=== PATIENT | female | born 1970 | race Asian ===

== ENCOUNTER 2018-04-20 09:44 | Emergency (ER) | payer OTHER ==
[2018-04-20 10:09] LABS: URINE HCG POC HCG NEGATIVE (Negative)
[2018-04-20 10:14] LABS: BILIRUBIN,URINE NEGATIVE (NEG); CLARITY,URINE CLEAR; COLOR,URINE YELLOW; GLUCOSE,URINE NEGATIVE (NEG); NITRITE,URINE NEGATIVE (NEG); PH,URINE 5.5; PROTEIN,URINE NEGATIVE (NEG-TRACE); UROBILINOGEN,URINE 0.2 mg/dL (0.2 mg/dL)
[2018-04-20 10:31] LABS: BACTERIA,URINE FEW /HPF (0-FEW); RBC,URINE OCC /HPF (0-2); SQUAMOUS EPITHELIAL CELL,UR MANY /LPF
== END 2018-04-20 11:09 | disposition home or self-care (01) ==
LOC: ER 09:44
DX: N39.0 Urinary tract infection, site not specified (principal)
CPT/HCPCS: 81001; 81025; 87086; 99284

== ENCOUNTER 2018-08-07 11:29 | Emergency (ER) | payer OTHER ==
[~2018-08-07] VITALS: Ht 152.4 cm; Wt 47.6 kg
[~2018-08-07 11:29] MED LIST: IBUP-1007 PO; MUPI15CR TP; PHEN100T82 PO; SULF1TAB24 PO
[2018-08-07 12:03] VITALS: BP 105/72
[2018-08-07 12:23] LABS: BILIRUBIN,URINE NEGATIVE (NEG); CLARITY,URINE TURBID; COLOR,URINE YELLOW; NITRITE,URINE POSITIVE (NEG); PH,URINE 6.5; PROTEIN,URINE 100 mg/dL (NEG-TRACE); UROBILINOGEN,URINE 0.2 mg/dL (0.2 mg/dL)
[2018-08-07 12:38] LABS: BACTERIA,URINE MODERATE /HPF (0-FEW); SQUAMOUS EPITHELIAL CELL,UR FEW /LPF; WBC,URINE TNTC /HPF (0-4)
--- NOTE | 2018-08-07 12:48 | PHYS DOC ---
Past Medical History Past Medical History: Other Additional Past Medical Histor: HEP C Past Surgical History: No Surgical History Alcohol Use: None Drug Use: None Adult General Chief Complaint Chief Complaint: BLOOD IN URINE HPI HPI Patient is a 48 year old female who presents to the emergency Department today with complaints of urinary frequency and burning for the last week. Patient also reported a vaginal discharge that is white in color. She states that this is normal vaginal discharge for her denies any vaginal odor or vaginal itching. Patient has been seen in the last 6 months for the same problem and has followed up with a physician for treatment of her year urinary tract infections but now she is continuing to have the same symptoms as before. She denies any nausea, vomiting, diarrhea, abdominal pain, or incontinence. Patient reports left-sided low back pain in addition to dysuria and increased urinary frequency. Currently she states that the pain with urination is a 9 out of 10. Pt speaks B[place] and is accompanied by a christian member who is a medical coordinator pesticide use and translated for the patient. Review of Systems Review of Systems Constitutional: Denies fever or chills [] Respiratory: Denies cough or shortness of breath [] GI: Denies abdominal pain, nausea, vomiting, or diarrhea [] : reports increased frequency, dysuria, suprapubic pain, and low back pain Neurologic: Denies headache, focal weakness or sensory changes [] All other systems were reviewed and found to be within normal limits, except as documented in this note. Allergies Allergies Allergies Coded Allergies Type Severity Reaction Last Updated Verified No Known Drug Allergies 04/20/18 No Physical Exam Physical Exam Constitutional: Well developed, well nourished, no acute distress, non-toxic appearance. [] HENT: Normocephalic, atraumatic, bilateral external ears normal, oropharynx moist, no oral exudates, nose normal. [] Eyes: PERRLA, conjunctiva normal, no discharge. [] Neck: Normal range of motion, no tenderness, supple, no stridor. [] Cardiovascular:Heart rate regular rhythm, no murmur [] Lungs & Thorax: Bilateral breath sounds clear to auscultation [] Abdomen: soft, suprapubic tenderness, no masses, no pulsatile masses. [] Skin: Warm, dry, no erythema, no rash. [] Back: L CVA tenderness. [] Neurologic: Alert and oriented X 3, normal motor function, normal sensory function, no focal deficits noted. [] Psychologic: Affect normal, judgement normal, mood normal. [] Current Patient Data Vital Signs Vital Signs Date Time Temp Pulse Resp B/P (MAP) Pulse Ox O2 Delivery O2 Flow Rate FiO2 08/07/18 12:03 98.1 89 16 105/72 (83) 100 98.1 Lab Values Laboratory Tests Test 08/07/18 11:45 Urine Collection Type Unknown Urine Color Yellow Urine Clarity Turbid Urine pH 6.5 Urine Specific [employer] 1.015 Urine Protein 100 mg/dL (NEG-TRACE) Urine Glucose (UA) Negative mg/dL (NEG) Urine Ketones (Stick) Negative mg/dL (NEG) Urine Blood Large (NEG) Urine Nitrite Positive (NEG) Urine Bilirubin Negative (NEG) Urine Urobilinogen Dipstick 0.2 mg/dL (0.2 mg/dL) Urine Leukocyte Esterase Large (NEG) Urine RBC 11-20 /HPF (0-2) Urine WBC Tntc /HPF (0-4) Urine Squamous Epithelial Cells Few /LPF Urine Bacteria Moderate /HPF (0-FEW) Urine Mucus Slight /LPF EKG EKG [] Radiology/Procedures Radiology/Procedures [] Course & Med Decision Making Course & Med Decision Making Pertinent Labs and Imaging studies reviewed. (See chart for details) Dx: UTI prescriptions for cipro and pyridium. Increase clear fluids and avoid bladder irritants. Follow up with PCP next week. Patient verbalized an understanding of home care, medications, follow-up, and return to ED instructions and was in agreement with the plan of care. [] Dragon Disclaimer Dragon Disclaimer This electronic medical record was generated, in whole or in part, using a voice recognition dictation system. Departure Departure Impression: Primary Impression: Urinary tract infection Disposition: HOME, SELF-CARE Condition: STABLE Referrals: NO PCP (PCP) Patient Instructions: Urinary Tract Infection Additional Instructions: Fill prescription(s) and use as directed. Increase clear fluids, avoid bladder irritants such as caffeine, carbonation, and spicy foods. Follow up with your doctor next week, return to the ER if symptoms worsen. Scripts Ciprofloxacin Hcl (CIPRO) 500 Mg Tablet 1 TAB PO BID, #14 TAB Prov: SONNY MANDEL APRN 08/07/18 Phenazopyridine Hcl (PYRIDIUM) 100 Mg Tablet 100 MG PO TID PRN for PAIN, #12 TAB 0 Refills Prov: SONNY MANDEL APRN 08/07/18 Problem Qualifiers Primary Impression: Urinary tract infection Urinary tract infection type: site unspecified Hematuria presence: with hematuria Qualified Codes: N39.0 - Urinary tract infection, site not specified ; R31.9 - Hematuria, unspecified SONNY MANDEL APRN Aug 07, 2018 12:48
[2018-08-07] MEDS ORDERED: PHEN100T82 PO (12:52)
[2018-08-07] MEDS ORDERED: CIPR500T94 PO (12:52)
== END 2018-08-07 13:10 | disposition home or self-care (01) ==
LOC: ER 11:29
DX: N39.0 Urinary tract infection, site not specified (principal); N89.8 Other specified noninflammatory disorders of vagina
CPT/HCPCS: 81001; 87086; 99284

== ENCOUNTER 2018-12-07 09:54 | Emergency (ER) | payer OTHER ==
[~2018-12-07] VITALS: Ht 160 cm; Wt 52.2 kg
[~2018-12-07 09:54] MED LIST changes: +CIPR500T94 PO
[2018-12-07 10:14] VITALS: BP 122/82
[2018-12-07] MEDS ORDERED: PRED50TA PO (10:42)
[2018-12-07] MEDS ORDERED: IBUP-1007 PO (10:42)
--- NOTE | 2018-12-07 10:43 | PHYS DOC ---
Past Medical History Past Medical History: Other Additional Past Medical Histor: HEP C Past Surgical History: No Surgical History Alcohol Use: None Drug Use: None Adult General Chief Complaint Chief Complaint: SORE THROAT HPI HPI Patient is a 48 year old female who presents with sore throat that began yesterday. Patient denies any fever coughing or congestion. was interpreting for patient. Review of Systems Review of Systems Constitutional: Denies fever or chills [] Eyes: Denies change in visual acuity, redness, or eye pain [] HENT: Reports sore throat. Denies nasal congestion Respiratory: Denies cough or shortness of breath [] Cardiovascular: No additional information not addressed in HPI [] GI: Denies abdominal pain, nausea, vomiting, bloody stools or diarrhea [] : Denies dysuria or hematuria [] Musculoskeletal: Denies back pain or joint pain [] Integument: Denies rash or skin lesions [] Neurologic: Denies headache, focal weakness or sensory changes [] All other systems were reviewed and found to be within normal limits, except as documented in this note. Allergies Allergies Allergies Coded Allergies Type Severity Reaction Last Updated Verified No Known Drug Allergies 04/20/18 No Physical Exam Physical Exam Constitutional: Well developed, well nourished, no acute distress, non-toxic appearance. [] HENT: Normocephalic, atraumatic, bilateral external ears normal, oropharynx moist, no oral exudates, nose normal. Slight erythema noted posterior pharynx, no exudate. Eyes: PERRLA, EOMI, conjunctiva normal, no discharge. [] Neck: Normal range of motion, no tenderness, supple, no stridor. [] Cardiovascular:Heart rate regular rhythm, no murmur [] Lungs & Thorax: Bilateral breath sounds clear to auscultation [] Abdomen: Bowel sounds normal, soft, no tenderness, no masses, no pulsatile masses. [] Skin: Warm, dry, no erythema, no rash. [] Back: No tenderness, no CVA tenderness. [] Extremities: No tenderness, no cyanosis, no clubbing, ROM intact, no edema. [] Neurologic: Alert and oriented X 3, normal motor function, normal sensory function, no focal deficits noted. [] Psychologic: Affect normal, judgement normal, mood normal. [] Current Patient Data Vital Signs Vital Signs Date Time Temp Pulse Resp B/P (MAP) Pulse Ox O2 Delivery O2 Flow Rate FiO2 12/07/18 10:14 98.4 77 16 122/82 (95) 99 Room Air 98.4 EKG EKG [] Radiology/Procedures Radiology/Procedures [] Course & Med Decision Making Course & Med Decision Making Pertinent Labs and Imaging studies reviewed. (See chart for details) This is a 48-year-old female patient presenting with sore throat since yesterday. Negative rapid strep. Symptoms are likely viral saltwater gargles recommended. Tylenol Motrin for pain or fever and follow-up with PCP in 1-2 weeks. Dragon Disclaimer Dragon Disclaimer This electronic medical record was generated, in whole or in part, using a voice recognition dictation system. Departure Departure Impression: Primary Impression: Acute viral pharyngitis Disposition: HOME, SELF-CARE Condition: STABLE Referrals: UNKNOWN PCP NAME (PCP) Follow-up in 1-2 Patient Instructions: Viral Pharyngitis Additional Instructions: You were evaluated for viral pharyngitis. Take the prescribed medications as ordered. Take Tylenol or Motrin for pain or fever. Follow-up with primary care doctor in 2 weeks. Scripts Prednisone (PREDNISONE) 50 Mg Tablet 1 TAB PO DAILY, #5 TAB Prov: ELYSSA MORENO APRN 12/07/18 Ibuprofen (IBUPROFEN) 600 Mg Tablet 600 MG PO PRN Q6HRS PRN for INFLAMMATION, #20 TAB Prov: ELYSSA MORENO APRN 12/07/18 ELYSSA MORENO APRN Dec 07, 2018 10:43
== END 2018-12-07 10:49 | disposition home or self-care (01) ==
LOC: ER 09:54
DX: J02.8 Acute pharyngitis due to other specified organisms (principal); B97.89 Other viral agents as the cause of diseases classified elsewhere
CPT/HCPCS: 87070; 87880; 99283

== ENCOUNTER 2018-12-20 03:57 | Emergency (ER) | payer OTHER ==
[~2018-12-20] VITALS: Ht 152.4 cm; Wt 52.2 kg
[~2018-12-20 03:57] MED LIST changes: +PRED50TA PO
[2018-12-20] MEDS ORDERED: IV NORMAL SALINE 500ML BAG 500 ML IV ONE (04:15)
[2018-12-20] MEDS ORDERED: HYOSCYAMINE 0.125 MG TAB.RAPDIS PO ONE (04:15)
[2018-12-20 04:30] VITALS: BP 104/65
--- NOTE | 2018-12-20 04:36 | PHYS DOC ---
Past Medical History Past Medical History: Other Additional Past Medical Histor: HEP C Past Surgical History: No Surgical History Alcohol Use: None Drug Use: None Adult General Chief Complaint Chief Complaint: ABDOMINAL PAIN HPI HPI Patient is a 48 year old female who presents with diarrhea. This started at approximately noon yesterday. There has been no blood in the stool. No significant abdominal pain. Some mild cramping. Patient recently traveled to and from the [facility] approximately 48 hours before this. There has been no out of country travel. No nausea or vomiting. No fever. Nothing seems to make the symptoms better or worse.[] Review of Systems Review of Systems Constitutional: Denies fever or chills [] Eyes: Denies change in visual acuity, redness, or eye pain [] HENT: Denies nasal congestion or sore throat [] Respiratory: Denies cough or shortness of breath [] Cardiovascular: No chest pain or palpitations[] GI: See history of present illness[] : Denies dysuria or hematuria [] Musculoskeletal: Denies back pain or joint pain [] Integument: Denies rash or skin lesions [] Neurologic: Denies headache, focal weakness or sensory changes [] Endocrine: Denies polyuria or polydipsia [] All other systems were reviewed and found to be within normal limits, except as documented in this note. Current Medications Current Medications Current Medications Medications (Trade) Dose Ordered Sig/Nellie Start Time Stop Time Status Last Admin Dose Admin Hyoscyamine (Anaspaz) 0.125 mg ONCE ONCE 12/20/18 04:15 12/20/18 04:31 DC 12/20/18 04:28 0.125 MG Sodium Chloride 500 ml @ 500 mls/hr 1X ONCE 12/20/18 04:15 12/20/18 05:14 12/20/18 04:28 500 MLS/HR Allergies Allergies Allergies Coded Allergies Type Severity Reaction Last Updated Verified No Known Drug Allergies 04/20/18 No Physical Exam Physical Exam Constitutional: Well developed, well nourished, no acute distress, non-toxic appearance. [] HENT: Normocephalic, atraumatic, bilateral external ears normal, oropharynx moist, no oral exudates, nose normal. [] Eyes: PERRLA, EOMI, conjunctiva normal, no discharge. [] Neck: Normal range of motion, no tenderness, supple, no stridor. [] Cardiovascular:Heart rate regular rhythm, no murmur [] Lungs & Thorax: Bilateral breath sounds clear to auscultation [] Abdomen: Bowel sounds normal, soft, no tenderness, no masses, no pulsatile masses. [] Skin: Warm, dry, no erythema, no rash. [] Back: No tenderness, no CVA tenderness. [] Extremities: No tenderness, no cyanosis, no clubbing, ROM intact, no edema. [] Neurologic: Alert and oriented X 3, normal motor function, normal sensory function, no focal deficits noted. [] Psychologic: Affect normal, judgement normal, mood normal. [] Current Patient Data Vital Signs Vital Signs Date Time Temp Pulse Resp B/P (MAP) Pulse Ox O2 Delivery O2 Flow Rate FiO2 12/20/18 04:06 97.5 67 16 106/63 (77) 99 Room Air 97.5 Lab Values Laboratory Tests Test 12/20/18 04:15 12/20/18 04:19 12/20/18 04:30 White Blood Count 4.3 x10^3/uL (4.0-11.0) Red Blood Count 4.17 x10^6/uL (3.50-5.40) Hemoglobin 10.7 g/dL (12.0-15.5) L Hematocrit 33.9 % (36.0-47.0) L Mean Corpuscular Volume 81 fL (79-100) Mean Corpuscular Hemoglobin 26 pg (25-35) Mean Corpuscular Hemoglobin Concent 32 g/dL (31-37) Red Cell Distribution Width 14.8 % (11.5-14.5) H Platelet Count 125 x10^3/uL (140-400) L Neutrophils (%) (Auto) 48 % (31-73) Lymphocytes (%) (Auto) 39 % (24-48) Monocytes (%) (Auto) 10 % (0-9) H Eosinophils (%) (Auto) 3 % (0-3) Basophils (%) (Auto) 0 % (0-3) Neutrophils # (Auto) 2.0 x10^3uL (1.8-7.7) Lymphocytes # (Auto) 1.7 x10^3/uL (1.0-4.8) Monocytes # (Auto) 0.4 x10^3/uL (0.0-1.1) Eosinophils # (Auto) 0.1 x10^3/uL (0.0-0.7) Basophils # (Auto) 0.0 x10^3/uL (0.0-0.2) Urine Collection Type Unknown Urine Color Yellow Urine Clarity Clear Urine pH 5.0 Urine Specific [place] 1.020 Urine Protein Negative mg/dL (NEG-TRACE) Urine Glucose (UA) Negative mg/dL (NEG) Urine Ketones (Stick) Negative mg/dL (NEG) Urine Blood Negative (NEG) Urine Nitrite Negative (NEG) Urine Bilirubin Negative (NEG) Urine Urobilinogen Dipstick 0.2 mg/dL (0.2 mg/dL) Urine Leukocyte Esterase Moderate (NEG) Urine RBC 11-20 /HPF (0-2) Urine WBC Tntc /HPF (0-4) Urine Squamous Epithelial Cells Many /LPF Urine Bacteria Moderate /HPF (0-FEW) Urine Mucus Marked /LPF Sodium Level 141 mmol/L (136-145) Potassium Level 3.3 mmol/L (3.5-5.1) L Chloride Level 105 mmol/L (98-107) Carbon Dioxide Level 27 mmol/L (21-32) Anion Gap 9 (6-14) Blood Urea Nitrogen 8 mg/dL (7-20) Creatinine 0.7 mg/dL (0.6-1.0) Estimated GFR (Cockcroft-Gault) 90.1 BUN/Creatinine Ratio 11 (6-20) Glucose Level 99 mg/dL (70-99) Calcium Level 8.6 mg/dL (8.5-10.1) Total Bilirubin 0.4 mg/dL (0.2-1.0) Aspartate Amino Transferase (AST) 17 U/L (15-37) Alanine Aminotransferase (ALT) 17 U/L (14-59) Alkaline Phosphatase 70 U/L (46-116) Total Protein 7.5 g/dL (6.4-8.2) Albumin 3.3 g/dL (3.4-5.0) L Albumin/Globulin Ratio 0.8 (1.0-1.7) L Lipase 132 U/L (73-393) POC Urine HCG, Qualitative Hcg negative (Negative) Influenza Type A Antigen Negative (NEGATIVE) Influenza Type B Antigen Negative (NEGATIVE) Laboratory Tests 12/20/18 04:15 Laboratory Tests 12/20/18 04:15 EKG EKG [] Radiology/Procedures Radiology/Procedures Acute abdominal series to include a PA chest radiograph 12/20/2018 Clinical History: Abdominal pain and diarrhea. A PA digital radiograph of the chest was obtained. Two AP supine and an erect AP digital radiographs of the abdomen/pelvis were obtained. No previous studies are available for comparison. The cardiac and mediastinal silhouettes are within normal limits in size and configuration. No pulmonary infiltrate is seen. No pleural effusion or pneumothorax is noted. The abdominal bowel gas pattern is nonobstructive. A moderate amount of stool is seen throughout the colon. There is no evidence of free air. No radiopaque calculus is seen. The osseous structures are grossly intact. Impression: Nonobstructive bowel gas pattern.[] Course & Med Decision Making Course & Med Decision Making Pertinent Labs and Imaging studies reviewed. (See chart for details) ED course: Patient arrived, was placed in bed, in tolerated exam well. She was given IV fluids, as well as antispasmodics. She was transported to and from x- ray with any complications. After the return of the laboratory and imaging studies, these were discussed with the patient and her family who voiced understanding. All questions were answered. Patient was discharged in improved condition. Medical decision making: Patient does not appear to have an obstruction, no evidence of blood in the stool, no anemia, no significant pathology noted on abdominal series radiographs. Patient is noted to have urinary tract infection, no evidence of pyelonephritis.[] Dragon Disclaimer Dragon Disclaimer This electronic medical record was generated, in whole or in part, using a voice recognition dictation system. Departure Departure Impression: Primary Impression: Urinary tract infection Additional Impression: Diarrhea Disposition: 01 HOME, SELF-CARE Condition: IMPROVED Referrals: UNKNOWN PCP NAME (PCP) Patient Instructions: Diarrhea, Diet for Diarrhea, Adult, Urinary Tract Infection Additional Instructions: Follow-up with your regular doctor in 2 days. Drink plenty of fluids, frequent small sips. No fatty foods, no milk, and no pepper for the next 48 hours. For the next 48 hours eat a diet rich in carbohydrates with foods such as bananas, rice, applesauce, and toast. Return to the ER if worsening discomfort, blood in the stool, or any other concerns. Scripts Hyoscyamine Sulfate (LEVSIN) 0.125 Mg Tablet 0.125 MG PO QID, #30 TAB Prov: RANDY ADAN DO 12/20/18 Ciprofloxacin Hcl (CIPRO) 250 Mg Tablet 250 MG PO BID for 7 Days, TAB Prov: RANDY ADAN DO 12/20/18 Problem Qualifiers Primary Impression: Urinary tract infection Urinary tract infection type: site unspecified Hematuria presence: without hematuria Qualified Codes: N39.0 - Urinary tract infection, site not specified Additional Impression: Diarrhea Diarrhea type: unspecified type Qualified Codes: R19.7 - Diarrhea, unspecified RANDY ADAN DO Dec 20, 2018 04:36
[2018-12-20 04:38] LABS: BASO % 0 % (0-3); EOS # 0.1 x10^3/uL (0.0-0.7); EOS % 3 % (0-3); HEMATOCRIT 33.9 % (36.0-47.0); HEMOGLOBIN 10.7 g/dL (12.0-15.5); LYMPH # 1.7 x10^3/uL (1.0-4.8); LYMPH % 39 % (24-48); MEAN CORPUSCULAR HEMOGLOBIN 26 pg (25-35); MEAN CORPUSCULAR HGB CONC 32 g/dL (31-37); MEAN CORPUSCULAR VOLUME 81 fL (79-100); MONO # 0.4 x10^3/uL (0.0-1.1); MONO % 10 % (0-9); NEUT % 48 % (31-73); PLATELET COUNT 125 x10^3/uL (140-400); RED BLOOD COUNT 4.17 x10^6/uL (3.50-5.40); RED CELL DISTRIBUTION WIDTH 14.8 % (11.5-14.5); WHITE BLOOD COUNT 4.3 x10^3/uL (4.0-11.0)
[2018-12-20 04:40] LABS: BILIRUBIN,URINE NEGATIVE (NEG); CLARITY,URINE CLEAR; COLOR,URINE YELLOW; NITRITE,URINE NEGATIVE (NEG); PROTEIN,URINE NEGATIVE (NEG-TRACE); UROBILINOGEN,URINE 0.2 mg/dL (0.2 mg/dL)
[2018-12-20 04:51] LABS: CALCIUM 8.6 mg/dL (8.5-10.1); CREATININE 0.7 mg/dL (0.6-1.0); GFR 90.1; POTASSIUM 3.3 mmol/L (3.5-5.1)
[2018-12-20 04:56] LABS: ALBUMIN 3.3 g/dL (3.4-5.0); ALBUMIN/GLOBULIN RATIO 0.8 (1.0-1.7); TOTAL BILIRUBIN 0.4 mg/dL (0.2-1.0); TOTAL PROTEIN 7.5 g/dL (6.4-8.2)
--- NOTE | 2018-12-20 05:01 | RAD ---
Acute abdominal series to include a PA chest radiograph 12/20/2018 Clinical History: Abdominal pain and diarrhea. A PA digital radiograph of the chest was obtained. Two AP supine and an erect AP digital radiographs of the abdomen/pelvis were obtained. No previous studies are available for comparison. The cardiac and mediastinal silhouettes are within normal limits in size and configuration. No pulmonary infiltrate is seen. No pleural effusion or pneumothorax is noted. The abdominal bowel gas pattern is nonobstructive. A moderate amount of stool is seen throughout the colon. There is no evidence of free air. No radiopaque calculus is seen. The osseous structures are grossly intact. Impression: Nonobstructive bowel gas pattern. Electronically signed by: Rubens Sanchez MD (12/20/2018 4:58 AM) [id number]
[2018-12-20 05:02] LABS: BACTERIA,URINE MODERATE /HPF (0-FEW); SQUAMOUS EPITHELIAL CELL,UR MANY /LPF; WBC,URINE TNTC /HPF (0-4)
[2018-12-20 05:05] LABS: INFLUENZA A PATIENT NEGATIVE (NEGATIVE); INFLUENZA B PATIENT NEGATIVE (NEGATIVE)
[2018-12-20] MEDS ORDERED: HYOS0.1264 PO (05:24)
[2018-12-20] MEDS ORDERED: CIPR250T30 PO (05:24)
[2018-12-20] MEDS ORDERED: CIPROFLOXACIN HCL 250 MG TABLET. PO ONE (05:30)
== END 2018-12-20 05:30 | disposition home or self-care (01) ==
LOC: ER 03:57
DX: N39.0 Urinary tract infection, site not specified (principal); R19.7 Diarrhea, unspecified
CPT/HCPCS: 36415; 74022; 80053; 81001; 81025; 83690; 85025; 87086; 87804; 96360; 99284; J7040

== ENCOUNTER 2020-12-09 03:50 | Emergency (ER) | payer OTHER ==
[~2020-12-09] VITALS: Ht 157.5 cm; Wt 52.7 kg
[~2020-12-09 03:50] MED LIST changes: +CIPR250T30 PO; +HYOS0.1264 PO
--- NOTE | 2020-12-09 04:22 | PHYS DOC ---
Past Medical History Past Medical History: Other Additional Past Medical Histor: HEP C (SANCHEZ HAMILTON DO) Past Surgical History: No Surgical History (SANCHEZ HAMILTON DO) Smoking Status: Never Smoker Alcohol Use: None Drug Use: None (SANCHEZ HAMILTON DO) General Adult EDM: Chief Complaint: ABDOMINAL PAIN HPI: HPI: Patient is a 50 year old female with no significant past medical histories who presents with acute onset abdominal pain. Patient only speaks [place] and her son acts as a truck body builder. According to patient and her son that this pain started about a few hours ago. It is constant, 10 out of 10 in severity's and starting from the lower back and radiating to the left lower quadrant of the abdomen. Patient had one episode of vomiting and she was roomed in the ER. Patient had never had similar pain before. Patient denies any headache, shortness of air, chest pain, pain in the other 3 quadrants of the abdomen, diarrhea or constipation. 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 (SANCHEZ HAMILTON DO) Review of Systems: Review of Systems: Review of systems: Constitutional symptoms- No fever, no chills. Eyes- No Discharge, No Visual Loss Respiratory symptoms- No shortness of breath, No wheezing, No Dyspnea on Exertion Cardiovascular Systems; No chest pain, No Palpitations, No syncope Gastrointestinal symptoms: Endorses left lower quadrant abdominal pain, denies constipation or diarrhea, endorses nausea and vomiting Genitourinary symptoms: No dysuria. Musculoskeletal symptoms: Reports the current pain starting from the left lower back NEUROLOGICAL Symptoms: No headache, no generalized weakness; No focal Weakness (SANCHEZ HAMILTON DO) Heart Score: C/O Chest Pain: No Risk Factors: Risk Factors: DM, Current or recent (<one month) smoker, HTN, HLP, family history of CAD, obesity. Risk Scores: Score 0 - 3: 2.5% MACE over next 6 weeks - Discharge Home Score 4 - 6: 20.3% MACE over next 6 weeks - Admit for Clinical Observation Score 7 - 10: 72.7% MACE over next 6 weeks - Early Invasive Strategies (SANCHEZ HAMILTON DO) Allergies: Allergies: Allergies Coded Allergies Type Severity Reaction Last Updated Verified No Known Drug Allergies 04/20/18 No (SANCHEZ HAMILTON DO) Physical Exam: PE: General: alert, patient is in acute distress. Skin: warm, dry and intact. Head:: Normocephalic, atraumatic. Neck: Trachea midline. Eyes: EOMI, Normal conjunctiva, No drainage CARDIOVASCULAR: Regular rate and rhythm RESPIRATORY: No respiratory distress MUSCULOSKELETAL: Full range of motion of bilateral upper and lower extremities. GASTROINTESTINAL: Left lower quadrant abdominal tenderness upon palpation NEUROLOGICAL: Alert and noted to person, place and time. No neurological deficits observed Psychiatric: Cooperative. Normal judgment (CHICOSANCHEZ Atwood ) EKG: EKG: [] (CHICOSANCHEZ Atwood ) Radiology/Procedures: Radiology/Procedures: [] Impression: CT abdomen and pelvis with contrast: Reason for examination: Abdominal pain. Helical images were obtained through the abdomen pelvis with with no intravenous or oral contrast administered. Reconstruction was performed in sagittal and coronal planes. Exposure: One or more of the following individualized dose reduction techniques were utilized for this examination: 1. Automated exposure control 2. Adjustment of the mA and/or kV according to patient size 3. Use of iterative reconstruction technique. The lung bases are clear. The heart size is normal with no pericardial effusion. No abnormality seen at the liver, spleen, adrenal glands, gallbladder or pancreas. The abdominal aorta and inferior vena cava show no abnormalities. No abnormality seen at the appendix. The colon shows no diverticulosis or diverticulitis or colitis. The right kidney shows no renal mass, renal calculus, hydronephrosis or obstructive uropathy the left kidney shows no renal mass but there is mild hydronephrosis which appears be due to a 4.4 mm calculus in the proximal left ureter. No abnormality seen at the bladder which is not distended. No abnormality seen at the uterus or ovaries. There is suggestion of a small amount of fluid in the pelvic cul-de-sac which may be physiologic. No acute bony abnormalities are see n. IMPRESSION: 4.4 mm calculus in the proximal left ureter causing mild left hydronephrosis. Small amount of fluid in the pelvic cul-de-sac which may be physiologic. Electronically signed by: Jennifer Akins MD (12/09/2020 5:34 AM) [facility] (CHICOSNACHEZ [place] ) Course & Med Decision Making: Course & Med Decision Making Pertinent Labs and Imaging studies reviewed. (See chart for details) [] Patient was evaluated for chief complaint. Work-up consisted of laboratory analysis and radiologic imaging. Results reviewed and discussed with patient and son. CT imaging shows a 4.4 mm kidney stone in the ureter. Patient has no ureter. Treatment included IV fluids, Toradol, morphine and Flomax. Also found to have a potassium of 2.9. This was placed with IV potassium 10 MEQ's. Post treatment with Toradol and morphine patient's flank pain abdominal pain improved. Patient did complain of a burning sensation with IV potassium. (SANCHEZ HAMILTON DO) Course & Med Decision Making Assumed care of patient at check out from Dr. Hamilton. At check out, UA was pending and patient is stable. At this time, patient has a very mild UTI. She does not have any signs of sepsis. Will attempt outpatient antibiotics with strict return precautions if she starts running fevers. Patient will follow up with urology outpatient.. (IKER SLOAN MD) Dragon Disclaimer: Dragon Disclaimer: This electronic medical record was generated, in whole or in part, using a voice recognition dictation system. (SANCHEZ HAMILTON DO) Departure Departure Impression: Primary Impression: Kidney stone Additional Impression: Hypokalemia Disposition: 01 HOME SELF CARE/HOMELESS Condition: STABLE Referrals: UNKNOWN PCP NAME (PCP) Patient Instructions: Hypokalemia, Kidney Stones Additional Instructions: 2020 Ty Valenzuela [email or web address] [id number], [place] [address] Scripts Cephalexin (CEPHALEXIN) 500 Mg Capsule 1 CAP PO BID, #20 CAP Prov: IKER SLOAN MD 12/09/20 Potassium Chloride (POTASSIUM CHLORIDE ) 20 Meq Tablet.er 20 MEQ PO DAILY for SUPPLEMENT, #7 TAB.SR Prov: SANCHEZ HAMILTON DO 12/09/20 Tamsulosin Hcl (FLOMAX) 0.4 Mg Cap.er.24h 0.4 MG PO DAILY for 10 Days, #14 TAB Prov: SANCHEZ HAMILTON DO 12/09/20 Hydrocodone Bit/Acetaminophen (HYDROCODONE-APAP 5-325 ) 1 Tab Tablet 1 TAB PO PRN Q6HRS PRN for PAIN for 10 Days, TAB 0 Refills Prov: SANCHEZ HAMILTON DO 12/09/20 SANCHEZ HAMILTON DO Dec 09, 2020 04:22 IKER SLOAN MD Dec 09, 2020 08:33
[2020-12-09 04:28] LABS: BASO % 0 % (0-3); EOS # 0.1 x10^3/uL (0.0-0.7); EOS % 1 % (0-3); HEMATOCRIT 35.4 % (36.0-47.0); HEMOGLOBIN 11.8 g/dL (12.0-15.5); LYMPH % 28 % (24-48); MEAN CORPUSCULAR HEMOGLOBIN 29 pg (25-35); MEAN CORPUSCULAR HGB CONC 33 g/dL (31-37); MEAN CORPUSCULAR VOLUME 86 fL (79-100); MONO # 1.1 x10^3/uL (0.0-1.1); MONO % 10 % (0-9); NEUT # 6.7 x10^3/uL (1.8-7.7); NEUT % 62 % (31-73); PLATELET COUNT 135 x10^3/uL (140-400); RED BLOOD COUNT 4.13 x10^6/uL (3.50-5.40); RED CELL DISTRIBUTION WIDTH 14.1 % (11.5-14.5); WHITE BLOOD COUNT 10.8 x10^3/uL (4.0-11.0)
[2020-12-09] MEDS ORDERED: KETOROLAC 30 MG/ML VIAL. IVP ONE (04:30)
[2020-12-09] MEDS ORDERED: IV NORMAL SALINE 1000ML BAG 1,000 ML IV ONE ×2 (04:30→06:30)
[2020-12-09] MEDS ORDERED: ONDANSETRON PF 4 MG/2 ML VIAL. IVP ONE (04:30)
[2020-12-09 04:41] LABS: ALBUMIN 3.5 g/dL (3.4-5.0); ALBUMIN/GLOBULIN RATIO 0.8 (1.0-1.7); CALCIUM 8.7 mg/dL (8.5-10.1); GFR 59.2; TOTAL BILIRUBIN 0.3 mg/dL (0.2-1.0)
[2020-12-09 04:43] LABS: POTASSIUM 2.9 mmol/L (3.5-5.1)
[2020-12-09] MEDS ORDERED: POTASSIUM CHLORIDE 10MEQ 100 ML IV ONE (05:00)
[2020-12-09] MEDS ORDERED: MORPHINE SULFATE 4 MG/ML VIAL. IV ONE (05:30)
--- NOTE | 2020-12-09 05:36 | RAD ---
CT abdomen and pelvis with contrast: Reason for examination: Abdominal pain. Helical images were obtained through the abdomen pelvis with with no intravenous or oral contrast adm inistered. Reconstruction was performed in sagittal and coronal planes. Exposure: One or more of the following individualized dose reduction techniques were utilized for thi s examination: 1. Automated exposure control 2. Adjustment of the mA and/or kV according to patient size 3. Use of iterative reconstruction technique. The lung bases are clear. The heart size is normal with no pericardial effusion. No abnormality seen at the liver, spleen, adrenal glands, gallbladder or pancreas. The abdominal aort a and inferior vena cava show no abnormalities. No abnormality seen at the appendix. The colon shows no diverticulosis or diverticulitis or colitis. The right kidney shows no renal mass, renal calculus, hydronephrosis or obstructive uropathy the left kidney shows no renal mass but there is mild hydrone phrosis which appears be due to a 4.4 mm calculus in the proximal left ureter. No abnormality seen at the bladder which is not distended. No abnormality seen at the uterus or ovari es. There is suggestion of a small amount of fluid in the pelvic cul-de-sac which may be physiologic. No acute bony abnormalities are seen. IMPRESSION: 4.4 mm calculus in the proximal left ureter causing mild left hydronephrosis. Small amount of fluid in the pelvic cul-de-sac which may be physiologic. Electronically signed by: Jennifer Akins MD (12/09/2020 5:34 AM) [facility]
[2020-12-09] MEDS ORDERED: TAMS0.4C97 PO (06:12)
[2020-12-09] MEDS ORDERED: POTA20TA4 PO (06:12)
[2020-12-09] MEDS ORDERED: HYDR-2761 PO (06:12)
[2020-12-09] MEDS ORDERED: TAMSULOSIN 0.4 MG CAP.ER.24H. PO ONE (06:30)
[2020-12-09] MEDS ORDERED: HYDROmorphone 2 MG/ML VIAL IVP ONE (07:45)
[2020-12-09 08:02] LABS: U PREG PATIENT NEGATIVE (NEG)
[2020-12-09 08:13] LABS: BILIRUBIN,URINE NEGATIVE (NEG); CLARITY,URINE CLEAR; COLOR,URINE YELLOW; NITRITE,URINE POSITIVE (NEG); PH,URINE 5.5 (<5.0-8.0); PROTEIN,URINE 30 mg/dL (NEG-TRACE); UROBILINOGEN,URINE 0.2 mg/dL (0.2 mg/dL)
[2020-12-09 08:15] LABS: BACTERIA,URINE MANY /HPF (0-FEW)
[2020-12-09 08:25] VITALS: BP 96/61
[2020-12-09] MEDS ORDERED: CEPH500C PO (08:33)
== END 2020-12-09 08:48 | disposition home or self-care (01) ==
LOC: ER 03:50
DX: N13.2 Hydronephrosis with renal and ureteral calculous obstruction (principal); E87.6 Hypokalemia; R10.32 Left lower quadrant pain; R11.2 Nausea with vomiting, unspecified
CPT/HCPCS: 36415; 74176; 80053; 81001; 81025; 83690; 83735; 84702; 85025; 87086; 96365; 96375; 99285; J1170; J1885; J2270; J2405; J3480; J7030